=== PATIENT | female | born 1960 ===

== ENCOUNTER 2018-11-07 21:27 | Emergency (ER) | payer OTHER ==
[~2018-11-07] VITALS: Ht 165.1 cm; Wt 74.8 kg
[~2018-11-07 21:27] MED LIST: CRANBERRY250 MG PO; ESTR2; OSTERA TABLET1 EACH PO; THYROID PO; [UNRECOGNIZED DRUG - OTHER] PO
[2018-11-07 23:38] LABS: Source, Urine Clean Catch
[2018-11-07 23:44] LABS: Bilirubin, Urine Neg (Neg); Blood, Urine Neg (Neg); Glucose Qualitative, Urine Neg (Neg); Ketones, Urine Neg (Neg); Leukocyte Esterase, Urine 3+ (Neg); Nitrite, Urine Neg (Neg); Protein, Urine Neg (Neg); Specific Gravity, Urine 1.005 (1.003-1.022); Urobilinogen, Urine NORM (Normal)
[2018-11-07 23:49] LABS: Appearance, Urine Clear (Clear); Color, Urine Yellow (P-Yellow)
[2018-11-07 23:54] LABS: Red Blood Cells, Urine 0-2 /hpf (0-2); Squamous Epithelial Cells Few /hpf (Few)
[2018-11-07 23:55] LABS: Bacteria Mod /hpf
[2018-11-07 23:57] LABS: U Amphetamine Screen Not Detected; U Barbituate Screen Not Detected; U Benzodiazapine Screen Not Detected; U Buprenorphine Screen Not Detected; U Cannabinoids Screen Not Detected; U Cocaine Screen Not Detected; U Methadone Screen Not Detected; U Methamphetamine Screen Not Detected; U Opiates Screen Not Detected; U Oxycodone Screen Not Detected; U Phencyclidine Screen Not Detected; U Propoxyphene Screen Not Detected
[2018-11-08 00:12] LABS: BASOPHILS ABSOLUTE AUTO 0.08 K/mm3 (0.00-0.23); BASOPHILS PERCENT AUTO 1 % (0-2); EOSINOPHILS ABSOLUTE AUTO 0.84 K/mm3 (0.00-0.68); EOSINOPHILS PERCENT AUTO 7 % (0-6); Hemoglobin 13.2 g/dL (11.5-16.0); IMMATURE GRAN ABSOLUTE AUTO 0.02 K/mm3 (0.00-0.10); IMMATURE GRAN PERCENT AUTO 0 % (0-1); LYMPHOCYTES ABSOLUTE AUTO 4.44 K/mm3 (0.84-5.20); LYMPHOCYTES PERCENT AUTO 38 % (21-46); MONOCYTES ABSOLUTE AUTO 0.66 K/mm3 (0.16-1.47); MONOCYTES PERCENT AUTO 6 % (4-13); Mean Corpuscular HGB 28.4 pg (26.0-34.0); Mean Corpuscular Volume 86 fL (80-100); Mean Platelet Volume 11.1 fL (9.1-12.4); NEUTROPHILS ABSOLUTE AUTO 5.76 K/mm3 (1.96-9.15); NEUTROPHILS PERCENT AUTO 49 % (41-73); Platelet Count 260 K/mm3 (150-400); RDW Coefficient Variation 13.2 % (11.7-14.2); Red Blood Cell Count 4.65 M/mm3 (3.80-5.20)
[2018-11-08 00:30] LABS: Alanine Aminotransfer (ALT/SGP 47 U/L (12-78); Albumin, Blood 4.1 g/dL (3.4-5.0); Albumin/Globulin Ratio 1.2 (0.8-1.8); Alk Phos 85 U/L (50-136); Anion Gap 6 mmol/L (6-16); Aspartate Aminotrans (AST/SGOT 23 U/L (12-37); Bilirubin, Total 0.3 mg/dL (0.1-1.0); Blood Urea Nitrogen 8 mg/dL (8-24); Bun/Creatinine Ratio 10.5 (12.0-20.0); CO2, Blood 26 mmol/L (21-32); Calcium, Blood 8.8 mg/dL (8.5-10.1); Chloride, Blood 108 mmol/L (98-108); Creatinine, Blood 0.76 mg/dL (0.40-1.00); Globulin, Blood 3.5 g/dL (2.2-4.0); Glomerular Filtration Rate >60 (60-); Glucose, Blood 128 mg/dL (70-99); Potassium, Blood 3.5 mmol/L (3.5-5.5); Sodium, Blood 140 mmol/L (136-145); Total Protein, Blood 7.6 g/dL (6.4-8.2)
[2018-11-08] MEDS ORDERED: Bactrim Ds Tab1 EACH PO (00:37)
== END 2018-11-08 00:53 | disposition home or self-care (01) ==
LOC: ER 21:27
PROVIDERS: Emergency Medicine
DX: T65.891A Toxic effect of other specified substances, accidental (unintentional), initial encounter (principal); N39.0 Urinary tract infection, site not specified; F41.9 Anxiety disorder, unspecified; Z87.891 Personal history of nicotine dependence; Z79.899 Other long term (current) drug therapy
CPT/HCPCS: 36415; 80053; 81001; 85025; 87086; 93005; 93010; 99284-25; G0480; J2405

== ENCOUNTER 2022-04-13 07:06 | Observation (INO) | payer OTHER ==
[~2022-04-13] VITALS: Ht 165.1 cm; Wt 65.8 kg
[~2022-04-13 07:06] MED LIST changes: +Bactrim Ds Tab1 EACH PO
[2022-04-13] MEDS ORDERED: MAGCHL64ER (07:31)
[2022-04-13] MEDS ORDERED: [UNRECOGNIZED DRUG - OTHER] PO (07:31)
[2022-04-13] MEDS ORDERED: Selenomax200 MCG PO (07:32)
[2022-04-13 07:47] LABS: Source, Urine Clean Catch
[2022-04-13 07:59] LABS: Appearance, Urine Clear (Clear); Bilirubin, Urine Neg (Neg); Blood, Urine 1+ (Neg); Color, Urine Yellow (P-Yellow); Glucose Qualitative, Urine Neg (Neg); Ketones, Urine 2+ (Neg); Leukocyte Esterase, Urine 3+ (Neg); Nitrite, Urine Neg (Neg); Protein, Urine 1+ (Neg); Specific Gravity, Urine 1.015 (1.003-1.022); Urobilinogen, Urine NORM (Normal)
[2022-04-13 08:00] LABS: BASOPHILS ABSOLUTE AUTO 0.04 K/mm3 (0.00-0.23); BASOPHILS PERCENT AUTO 1 % (0-2); EOSINOPHILS ABSOLUTE AUTO 0.18 K/mm3 (0.00-0.68); EOSINOPHILS PERCENT AUTO 3 % (0-6); Hematocrit 40.5 % (33.0-51.0); Hemoglobin 13.7 g/dL (11.5-16.0); IMMATURE GRAN ABSOLUTE AUTO 0.02 K/mm3 (0.00-0.10); IMMATURE GRAN PERCENT AUTO 0 % (0-1); LYMPHOCYTES ABSOLUTE AUTO 2.69 K/mm3 (0.84-5.20); LYMPHOCYTES PERCENT AUTO 44 % (21-46); MONOCYTES PERCENT AUTO 7 % (4-13); Mean Corpuscular HGB 28.4 pg (26.0-34.0); Mean Corpuscular HGB Conc 33.8 g/dL (31.5-36.5); Mean Corpuscular Volume 84 fL (80-100); Mean Platelet Volume 11.4 fL (9.1-12.4); NEUTROPHILS ABSOLUTE AUTO 2.85 K/mm3 (1.96-9.15); NEUTROPHILS PERCENT AUTO 46 % (41-73); Platelet Count 248 K/mm3 (150-400); RDW Standard Deviation 39.7 fL (35.1-46.3); Red Blood Cell Count 4.82 M/mm3 (3.80-5.20); White Blood Cell Count 6.18 K/mm3 (4.00-11.30)
[2022-04-13 08:12] LABS: Bacteria Few /hpf; Squamous Epithelial Cells Rare /hpf (Few)
[2022-04-13 08:19] LABS: Albumin, Blood 3.7 g/dL (3.4-5.0); Albumin/Globulin Ratio 1.1 (0.8-1.8); Bilirubin, Total 0.3 mg/dL (0.1-1.0); Calcium, Blood 9.2 mg/dL (8.5-10.1); Creatinine, Blood 0.77 mg/dL (0.40-1.00); Globulin, Blood 3.5 g/dL (2.2-4.0); Potassium, Blood 3.5 mmol/L (3.5-5.5); Total Protein, Blood 7.2 g/dL (6.4-8.2)
--- NOTE | 2022-04-13 12:43 | NUR ---
1225 PT BROUGHT FROM SURGICAL FLOOR TO DAY SURGERY VIA [facility] FOR PROCEDURE. History, Chart, Medications and Allergies reviewed before start of procedure. Lungs clear T/O to Auscultation. Patient confirms NPO status and agrees with scheduled surgery. Pre-Op teaching done. Pt verbalizes understanding. Surgical site prepped with 2% Chlorhexidine cloth wipe.
--- NOTE | 2022-04-13 13:24 | NUR ---
ADMISSION: REPORT RECEIVED FROM ED RN TESSY. PT ARRIVED TO ROOM AT ABOUT 1200 AND VITAL SIGNS TAKEN BY HIREN BOLTON. DAY SURGERY IN ROOM AT ABOUT 1230 TO TAKE PT TO OR.
--- NOTE | 2022-04-13 14:31 | NUR ---
04/13/22 1431 Giovani Esqueda PT HAS RECIEVED SCHEDULED ANTIBIOTICS
[2022-04-13] MEDS ORDERED: ONDA4ODT MM (15:38)
[2022-04-13] MEDS ORDERED: Norco 5-325 Ta1 EACH PO (15:38)
--- NOTE | 2022-04-13 16:41 | NUR ---
SHIFT SUMMARY/NOTE: POD 0 LAP JOSEMANUEL PATIENT IS A&OX4. VS ARE WNL AND IS ON RA. PATIENT REPORTS HAVING MORE NAUSEA THAN PAIN AT THIS TIME. SHE HAS BEEN GIVEN IV ZOFRAN AND PHENERGAN IN PACU AND AWAITING FOR THE IV REGLAN TO BE VERIFIED BY PHARMACY. OTHERWISE PATIENT REPORTS 4/10 PAIN AT THIS TIME. ABD IS SOFT BUT TENDER TO TOUCH. SHE HAS 4 LAP SITES WITH DERMABOND THAT ARE C/D/I. SHE HAS TOLERATED A SMALL SIP OF WATER SO FAR. FAMILY IS AT BEDSIDE. CALL LIGHT WITHIN REACH.
--- NOTE | 2022-04-14 04:48 | NUR ---
PTS VS TAKEN PER AREA ATTENDANT BP 93/51,HEART RATE 72. I CONFIRMED VS BP 92/51,89/55 MAP 65 PTS OUT>IN TONIGHT.ABD REMAINS SOFT WITH BRUISING TO LAP SITES.NO ACUTE CHANGES OTHER THAN BP.I RESUMED IV FLUIDS AND CALLED DR IRIZARRY TO ADVISE OF ABOVE PT PLANS FOR DISCHARGE TODAY.DR WILDER RESUMING IV FLUIDS AND ORDERED CBC.LAB NOTIFIED OF ORDER.
[2022-04-14 05:16] LABS: BASOPHILS ABSOLUTE AUTO 0.03 K/mm3 (0.00-0.23); BASOPHILS PERCENT AUTO 0 % (0-2); EOSINOPHILS ABSOLUTE AUTO 0.02 K/mm3 (0.00-0.68); EOSINOPHILS PERCENT AUTO 0 % (0-6); Hematocrit 38.2 % (33.0-51.0); Hemoglobin 12.6 g/dL (11.5-16.0); IMMATURE GRAN ABSOLUTE AUTO 0.04 K/mm3 (0.00-0.10); IMMATURE GRAN PERCENT AUTO 0 % (0-1); LYMPHOCYTES ABSOLUTE AUTO 2.42 K/mm3 (0.84-5.20); LYMPHOCYTES PERCENT AUTO 18 % (21-46); MONOCYTES ABSOLUTE AUTO 0.79 K/mm3 (0.16-1.47); MONOCYTES PERCENT AUTO 6 % (4-13); Mean Corpuscular HGB 28.1 pg (26.0-34.0); Mean Corpuscular Volume 85 fL (80-100); Mean Platelet Volume 11.8 fL (9.1-12.4); NEUTROPHILS ABSOLUTE AUTO 9.94 K/mm3 (1.96-9.15); NEUTROPHILS PERCENT AUTO 75 % (41-73); Platelet Count 260 K/mm3 (150-400); RDW Coefficient Variation 13.1 % (11.7-14.2); RDW Standard Deviation 40.6 fL (35.1-46.3); Red Blood Cell Count 4.49 M/mm3 (3.80-5.20); White Blood Cell Count 13.24 K/mm3 (4.00-11.30)
--- NOTE | 2022-04-14 10:22 | NUR ---
discharged REVIEWED DC INSTRUCTIONS W/PT; VERBALIZED UNDERSTANDING. DC'D IV, CATHETER INTACT. DECLINED OFFER FOR WC. PT LEFT UNIT BY AMBULATION, ACCOMPANIED BY SPOUSE, W/POSSESSIONS AND DC PAPERWORK IN HAND.
== END 2022-04-14 09:50 | disposition home or self-care (01) ==
LOC: ER 07:06 → SURS 07:07
PROVIDERS: Student in an Organized Health Care Education/Training Program; ADMIT Surgery
PROC: BF12YZZ Fluoroscopy of Gallbladder using Other Contrast (ICD-10-PCS; principal; 2022-04-13 15:00)
PROC: 0FT44ZZ Resection of Gallbladder, Percutaneous Endoscopic Approach (ICD-10-PCS; principal; 2022-04-13 15:00)
DX: K80.12 Calculus of gallbladder with acute and chronic cholecystitis without obstruction (principal); Z88.5 Allergy status to narcotic agent; Z72.0 Tobacco use
CPT/HCPCS: 36415; 74300; 76705; 80053; 81001; 82248; 83690; 85025; 87086; 88304; 96365; 96367; 96375; 99285-25; A9270; C1729; J0696; J1100; J1885; J2405; J2550; J2704; J2795; J3010; J7120